=== PATIENT | female | born 1945 | race Caucasian/White ===

== ENCOUNTER 2017-02-06 14:22 | Inpatient (IN) | payer MEDICARE, MEDICAID ==
[2017-02-06] VITALS (8 sets, daily range): BP systolic 122–158; BP diastolic 63–85
[~2017-02-06] VITALS: Ht 162.6 cm; Wt 51.7 kg
--- NOTE | 2017-02-06 14:27 | NUR ---
MD MAE AT
--- NOTE | 2017-02-06 14:28 | NUR ---
OLIVER FROM [facility] FOR PSYHE EVALUATION. PATIENT IS AAO4. APPEARS IN NO APPARENT DISTRESS. RESPIRATION EVEN AND UNLABORED,. PER PATIENT SHE'S BEEN HEARING VOICES-- "THEY'RE TELLING ME IM BEING PUNISHED" . DENIES SUICIDAL. VSS
--- NOTE | 2017-02-06 14:30 | NUR ---
MUKESH TECH AT
--- NOTE | 2017-02-06 14:31 | NUR ---
EKG IN PROGRESS
[2017-02-06] MEDS ORDERED: MAGN400O6 PO (14:36)
[2017-02-06] MEDS ORDERED: CALC500T13 PO (14:36)
[2017-02-06] MEDS ORDERED: ACET-868 PO (14:36)
[2017-02-06] MEDS ORDERED: ZOLP5TAB2 PO (14:36)
[2017-02-06] MEDS ORDERED: LORA0.5T PO (14:36)
[2017-02-06] MEDS ORDERED: MIRT15TA7 PO (14:36)
[2017-02-06] MEDS ORDERED: DOCU-25 PO (14:36)
[2017-02-06] MEDS ORDERED: MAG30ORA PO (14:36)
[2017-02-06] MEDS ORDERED: TRAM50TA2 PO (14:36)
[2017-02-06] MEDS ORDERED: OLAN7.5T3 PO (14:36)
--- NOTE | 2017-02-06 14:36 | NUR ---
CALLED [facility] FOR PSYCH EVAL, ETA 1 HOUR
[2017-02-06 14:40] LABS: MEAN CORPUSCULAR HEMOGLOBIN 15 PG (26.0-33.0); MEAN CORPUSCULAR HGB CONC 29 g/dl (31.0-36.0); MEAN CORPUSCULAR VOLUME 53 fL (82-100); PLATELET COUNT (AUTO) 487 /CMM (150-450); RDW COEFFICIENT OF VARIATION 21.2 (11.5-15.0); RED BLOOD CELL COUNT(AUTO) 3.15 MIL/uL (4.0-5.2)
[2017-02-06 14:47] LABS: HEMOGLOBIN 4.8 g/dL (11.5-14.8)
[2017-02-06 14:48] LABS: HEMATOCRIT 17 % (33-45)
--- NOTE | 2017-02-06 15:05 | NUR ---
NURSE MIDWIFE/CLINICAL INSTRUCTOR AT BEDSIDE FOR REDRAW
[2017-02-06 15:16] LABS: ALCOHOL, BLOOD < 3 mg/dL (0-0); CARBON DIOXIDE 25 mmol/L (21-32); CHLORIDE 107 mmol/L (98-107); GLUCOSE 104 mg/dL (74-106); POTASSIUM 4.1 mmol/L (3.5-5.1); SODIUM SERUM 141 mmol/L (136-145); UREA NITROGEN, BLOOD 17 mg/dL (7-18)
[2017-02-06 15:23] LABS: CREATININE 1.1 mg/dL (0.6-1.3)
[2017-02-06 15:25] LABS: MEAN CORPUSCULAR HEMOGLOBIN 15 PG (26.0-33.0); MEAN CORPUSCULAR HGB CONC 29 g/dl (31.0-36.0); MEAN CORPUSCULAR VOLUME 53 fL (82-100); PLATELET COUNT (AUTO) 481 /CMM (150-450); RDW COEFFICIENT OF VARIATION 20.9 (11.5-15.0); RED BLOOD CELL COUNT(AUTO) 3.13 MIL/uL (4.0-5.2); WHITE BLOOD COUNT (AUTO) 6.4 K/uL (4.3-11.0)
[2017-02-06 15:25] LABS: TROPONIN I < 0.017 ng/mL (0.00-0.056)
[2017-02-06] MEDS ORDERED: PANTOPRAZOLE 40 MG VIAL ONE (15:25)
[2017-02-06 15:29] LABS: HEMOGLOBIN 4.7 g/dL (11.5-14.8)
[2017-02-06 15:30] LABS: HEMATOCRIT 16 % (33-45)
[2017-02-06] MEDS ORDERED: PANTOPRAZOLE 40 MG VIAL IV ONE (15:30)
--- NOTE | 2017-02-06 15:32 | NUR ---
IV ACCESSED TO LAC 20
--- NOTE | 2017-02-06 15:34 | NUR ---
CALLED [facility] AND NOTIFIED HER PATIENT IS NOT MEDICALLY CLEARED
[2017-02-06 15:54] LABS: THYROID STIMULATING HORMONE 2.148 uIU/mL (0.358-3.74)
[2017-02-06] MEDS ORDERED: ACETAMINOPHEN 325 MG TABLET PO PRN (16:00)
[2017-02-06] MEDS ORDERED: ONDANSETRON HCL/PF 4 MG/2 ML VIAL IVP PRN (16:00)
[2017-02-06 16:38] LABS: APPEARANCE,URINE CLEAR (CLEAR); BILIRUBIN,URINE NEGATIVE (NEGATIVE); BLOOD, URINE NEGATIVE Ery/uL (NEGATIVE); COLOR,URINE YELLOW (YELLOW); KETONES,URINE NEGATIVE (NEGATIVE); LEUKOCYTE ESTERASE ,URINE NEGATIVE (NEGATIVE); NITRITE, URINE NEGATIVE (NEGATIVE); PROTEIN,URINE NEGATIVE (NEGATIVE); UGLUCOSE NEGATIVE (NEGATIVE); UROBILINOGEN,URINE 0.2 EU/dL (0.2)
--- NOTE | 2017-02-06 16:48 | NUR ---
PATIENT ASSIGNED TO [facility] 119-1
--- NOTE | 2017-02-06 16:55 | NUR ---
REPORT GIVEN TO OSKAR PEREZ FOR CONTINUITY OF CARE
[2017-02-06] MEDS ORDERED: PANTOPRAZOLE 40 MG VIAL IV SCH (17:00)
--- NOTE | 2017-02-06 17:12 | NUR ---
BLOOD NOT READY FOR TRANSFUSION YET. ENDORSED TO OSKAR PEREZ 2 PRBC
--- NOTE | 2017-02-06 17:19 | NUR ---
Admitted patient from ER via gurney;no unusual signs or symptoms observed or reported,no signs of discomfort or distress.Patient is to be transfused with Pack RBC.Took VS all are in the normal range.
--- NOTE | 2017-02-06 17:24 | NUR ---
PT TRANSPORTED TO [facility] VIA ACLS PROTOCOL
[2017-02-06 19:57] LABS: BAND % (MANUAL) 1 % (0.0-5.0); EOSINOPHILS % (MANUAL) 2 % (0-4); LYMPHOCYTES % (MANUAL) 11 % (16-48); MONOCYTES % (MANUAL) 5 % (0-11.0); NEUTROPHILS % (MANUAL) 81 (42-76)
--- NOTE | 2017-02-06 20:21 | NUR ---
Picked up and started blood transfusions #1,no problems
[2017-02-06] MEDS: LORAZEPAM INJ 2 MG/ML VIAL IV PRN (20:44)
--- NOTE | 2017-02-06 23:50 | NUR ---
Picked up Pack RBC #2 and transfused,no problems,tolerated well.
[2017-02-07] VITALS (12 sets, daily range): BP systolic 128–154; BP diastolic 64–95
--- NOTE | 2017-02-07 03:20 | NUR ---
Picked up and started transfusing of Pack RBC #3,no problems,tolerating well.
--- NOTE | 2017-02-07 05:40 | NUR ---
Transfusion completed,no problems no unusual signs or symptoms observed or reported.
[2017-02-07] MEDS: IV NS 0.9% 1,000 ML IV PRN ×2 (06:07→20:51)
[2017-02-07] MEDS: LORAZEPAM INJ 2 MG/ML VIAL IV PRN ×2 (06:51→14:33)
[2017-02-07 07:46] LABS: HEMATOCRIT 34 % (33-45); HEMOGLOBIN 10.6 g/dL (11.5-14.8); MEAN CORPUSCULAR HEMOGLOBIN 21 PG (26.0-33.0); MEAN CORPUSCULAR HGB CONC 31 g/dl (31.0-36.0); MEAN CORPUSCULAR VOLUME 67 fL (82-100); PLATELET COUNT (AUTO) 400 /CMM (150-450); RDW COEFFICIENT OF VARIATION 35.6 (11.5-15.0); RED BLOOD CELL COUNT(AUTO) 5.03 MIL/uL (4.0-5.2); WHITE BLOOD COUNT (AUTO) 7.5 K/uL (4.3-11.0)
[2017-02-07 07:51] LABS: CALCIUM, SERUM 8.8 mg/dL (8.5-10.1); CREATININE 0.9 mg/dL (0.6-1.3); MAGNESIUM 2.1 mg/dL (1.8-2.4); PHOSPHORUS 3.1 mg/dL (2.5-4.9)
--- NOTE | 2017-02-07 08:00 | NUR ---
UNDERWATER TRAPPER NOTE PATIENT IN BED BUT VERY ANXIOUS , ALL NEEDS ATTENDED ,ON TELE MONITOR SR 95 , BED IN LOWEST AND LOCKED POSITION , CALL LIGHT WITHIN REACH , PLAN OF CARE DISCUSSED WITH PATIENT , ON NPO SEPTUS AT THIS TIME , LT FOREARM HL INTACT AND PATENT , ON IVF ORDERED, ASSISTED TO BR . NO BM AT THIS TIME , WILL CONT TO MONITOR CLOSELY
[2017-02-07] MEDS: PANTOPRAZOLE 40 MG VIAL IV SCH ×2 (08:30→16:41)
[2017-02-07 08:43] LABS: EOSINOPHILS % (MANUAL) 2 % (0-4); LYMPHOCYTES % (MANUAL) 17 % (16-48); MONOCYTES % (MANUAL) 6 % (0-11.0); NEUTROPHILS % (MANUAL) 75 (42-76)
--- NOTE | 2017-02-07 09:40 | NUR ---
PAPER MAKER NOTE SPOKE WITH CARLOTTA SCHMITT SCRUM PRODUCT OWNER NOTIFIED THAT PATIENT IS NPO AT THIS TIME , AND FOLLOW UP WITH MED RECON , ALSO NOTIFIED THAT HG NOW 10.6 HCT 34 ALSO ALSO STILL WANTS KEEP FULL CODE AT THIS TIME WILL HELD PSYCH EVAL TILL DR RADHA KAMINSKI DOCTOR SEE PATIENT , CONT ON IVF ORDERED WILL CONT TO MONITOR CLOSELY Addendum: 02/07/17 at 1400 by MANUEL PATEL RN [id number] SPOKE WITH INA TO CHECK MED RECON ,STATED THAT WILL CHECK IT OUT
--- NOTE | 2017-02-07 13:15 | NUR ---
EXECUTIVE RECEPTIONIST NOTE SPOKE WITH DR AXEL KAMINSKI ,STATED THAT WE NEED TO GET CONSENT FOR PROCEDURE AND OK TO START CLEAR LIQUID DIET FOR NOW ,AWARE THAT UNABLE TO REACH PATIENT SISTER FINESSE ,CALLED MANY TIMES , LEFT A MESSAGE ,ALSO AWARE THAT HG 10.6 AWARE THAT NO ORDER TO PREP FOR COLONOSCOPY
--- NOTE | 2017-02-07 13:20 | NUR ---
ALEXANDER SCHMITT NOTE PER INA SCHMITT CLIP WRAPPER OK TO HAVE PSYCH EVAL
[2017-02-07] MEDS: SOD FERRIC GLUC 125 MG in IV NS 0.9% 100 ML IV SCH (13:52)
--- NOTE | 2017-02-07 14:41 | NUR ---
AGRICULTURE SCIENCE TEACHER NOTE NOTED PATIENT IS AGITATED TRYING TO REMOVE ALL LINES AND DIAPER, ALL NEEDS ATTENDED, STAYED WITH PATIENT, REASSURANCE GIVEN , ATIVAN 0.5 MG IV GIVEN ORDERED, WILL F\U Addendum: 02/07/17 at 1525 by MANUEL PATEL RN BUSINESS SUPPORTCORE SHAPER RN PLACED DOCUMENTATION OF BLOOD TRANSFUSION ON PAPER NOT IN COMPUTER , SEE HIS DOCUMENTATION IN CHART
--- NOTE | 2017-02-07 16:56 | NUR ---
FILM COMPOSER NOTE SPOKE WITH WITH SISTER FINESSE, TELEPHONE CONSENT FOR EGD AND COLONOSCOPY OBTAINED DR REYNA NOTIFIED
--- NOTE | 2017-02-07 17:59 | NUR ---
ALEXANDER PATRICIA PER DR JEREZ TO START CLEAR LIQUID DIET FOR NOR AMD NPO ON MONDAT AFTER MN ON 02/09/17 JOVANA LORD MPNDAY AT 10 Addendum: 02/07/17 at 1801 by MANUEL PATEL RN WRONG ENTRY
--- NOTE | 2017-02-07 18:01 | NUR ---
ORDER FILLER NOTE PER DR AXEL MAHONEY TO START ON CLEAR LIQUID DIET AND START BE ON WEDNESDAY NPO AFTER MID NIGHT ON 02/09/17 ALSO GIVE GOLYTELY AT 1300 ON Wednesday02/08/17 GIVE ORDER TO GET CONSENT FOE EGD AND COLONOSCOPY ,SPOKE WITH FINESSE SISTER TELEPHONE CONSENT OBTAINED Addendum: 02/07/17 at 1816 by MANUEL PATEL RN ESTELITA HL ON RT FA ABDULLAHI 22 INSERTED WITH GOOD BLOOD RETURN
--- NOTE | 2017-02-07 19:30 | NUR ---
Received patient in the bed.No unusual signs or symptoms observed or reported,no signs of discomfort or distress.Telemetry attached,recording SR at 97 bpm.VS taken all are in the normal range except for the BP 152/95.Normal Saline attached and infusing via a heplock on the right arm at 75 bpm,tolerating well.Scheduled for a procedure.Preparation to begin shortly.No problems.
--- NOTE | 2017-02-07 23:00 | NUR ---
Resting quietly,no problems
[2017-02-08] VITALS (9 sets, daily range): BP systolic 94–157; BP diastolic 52–94
[2017-02-08 07:13] LABS: HEMATOCRIT 31 % (33-45); HEMOGLOBIN 9.9 g/dL (11.5-14.8); MEAN CORPUSCULAR HEMOGLOBIN 22 PG (26.0-33.0); MEAN CORPUSCULAR HGB CONC 32 g/dl (31.0-36.0); MEAN CORPUSCULAR VOLUME 67 fL (82-100); PLATELET COUNT (AUTO) 256 /CMM (150-450); RDW COEFFICIENT OF VARIATION 36.1 (11.5-15.0)
--- NOTE | 2017-02-08 07:30 | NUR ---
RN NOTES RECEIVED PATIENT IN BED ALERT, AWAKE, ORIENTED X3 WITH BREATHING NORMAL, EVEN AND UNLABORED. NO SOB NOTED. NO ACUTE DISTRESS NOTED TELE MONITOR REVEALS SR, HR=88. BOWEL SOUNDS PRESENT. PULSES PRESENT. SAFETY MEASURE OBSERVED. CALL LIGHT WITH IN REACH. WILL CONT TO [id number].
[2017-02-08 07:34] LABS: CALCIUM, SERUM 8.1 mg/dL (8.5-10.1); CREATININE 0.8 mg/dL (0.6-1.3); POTASSIUM 3.8 mmol/L (3.5-5.1)
[2017-02-08] MEDS: PANTOPRAZOLE 40 MG VIAL IV SCH ×2 (09:07→17:52)
[2017-02-08] MEDS: LORAZEPAM INJ 2 MG/ML VIAL IV PRN (09:08)
[2017-02-08] MEDS: IV NS 0.9% 1,000 ML IV PRN (09:15)
[2017-02-08 11:10] LABS: EOSINOPHILS % (MANUAL) 4 % (0-4); LYMPHOCYTES % (MANUAL) 13 % (16-48); MONOCYTES % (MANUAL) 3 % (0-11.0); NEUTROPHILS % (MANUAL) 80 (42-76)
[2017-02-08] MEDS ORDERED: PEG 3350/NA SULF,BICARB,CL/KCL 4,000 ML BOTTLE PO ONE (13:00)
[2017-02-08] MEDS: SOD FERRIC GLUC 125 MG in IV NS 0.9% 100 ML IV SCH (14:53)
[2017-02-08] MEDS: OLANZAPINE 2.5 MG TABLET PO SCH (17:52)
--- NOTE | 2017-02-08 18:58 | NUR ---
RN NOTES PATIENT ENDORSED TO NEXT SHIFT IN STABLE CONDITION WITH BREATHING NORMAL, EVEN AND UNLABORED. NO SOB NOTED. NO ACUTE DISTRESS NOTED. KEPT CLEAN, DRY AND COMFORTABLE. ALL NEEDS ATTENDED. SAFETY MEASURE OBSERVED. CALL LIGHT WITH IN REACH. WILL CONT TO MONITOR.
[2017-02-08] MEDS ORDERED: MAGNESIUM CITRATE 296 ML BOTTLE PO PRN (19:00)
[2017-02-08] MEDS: OLANZAPINE 10 MG TABLET PO SCH (22:06)
[2017-02-08] MEDS: MIRTAZAPINE 15 MG TABLET PO SCH (22:06)
[2017-02-09] VITALS: BP 148/79
[2017-02-09] MEDS: IV NS 0.9% 1,000 ML IV PRN ×2 (02:47→19:58)
[2017-02-09 04:00] VITALS: BP 144/77
[2017-02-09 05:57] LABS: HEMATOCRIT 34 % (33-45); HEMOGLOBIN 10.6 g/dL (11.5-14.8); MEAN CORPUSCULAR HEMOGLOBIN 21 PG (26.0-33.0); MEAN CORPUSCULAR HGB CONC 31 g/dl (31.0-36.0); MEAN CORPUSCULAR VOLUME 68 fL (82-100); PLATELET COUNT (AUTO) 377 /CMM (150-450); RDW COEFFICIENT OF VARIATION 36.4 (11.5-15.0); RED BLOOD CELL COUNT(AUTO) 5.04 MIL/uL (4.0-5.2); WHITE BLOOD COUNT (AUTO) 9.8 K/uL (4.3-11.0)
[2017-02-09 06:06] LABS: CALCIUM, SERUM 8.4 mg/dL (8.5-10.1); CREATININE 0.8 mg/dL (0.6-1.3); POTASSIUM 3.9 mmol/L (3.5-5.1)
[2017-02-09 06:35] LABS: BAND % (MANUAL) 2 % (0.0-5.0); EOSINOPHILS % (MANUAL) 1 % (0-4); LYMPHOCYTES % (MANUAL) 12 % (16-48); MONOCYTES % (MANUAL) 3 % (0-11.0); NEUTROPHILS % (MANUAL) 82 (42-76)
--- NOTE | 2017-02-09 07:15 | NUR ---
RN NOTES RECEIVED PATIENT IN BED ALERT, AWAKE, ANXIOUS AT TIMES , ORIENTED X3, RESPIRATION EVEN AND UNLABORED, NO DISTRESS NOTED, ON TELE SR, PT NPO THIS AM COLOSCOPY , PULSES PRESENT. SAFETY MEASURE OBSERVED. BED LOCKED AND IN LOWEST POSITION , CALL LIGHT WITHIN EASY REACH. WILL CONT TO [id number].
[2017-02-09 08:00] VITALS: BP 157/82
[2017-02-09] MEDS: PANTOPRAZOLE 40 MG VIAL IV SCH (09:50)
[2017-02-09] MEDS: OLANZAPINE 2.5 MG TABLET PO SCH (09:50)
[2017-02-09] MEDS: LORAZEPAM INJ 2 MG/ML VIAL IV PRN ×2 (09:54→15:34)
[2017-02-09 12:00] VITALS: BP 139/73
--- NOTE | 2017-02-09 12:00 | NUR ---
RN NOTES BM X1, PT STABLE , NO DISTRESS NOTED.
[2017-02-09] MEDS: SOD FERRIC GLUC 125 MG in IV NS 0.9% 100 ML IV SCH (14:16)
[2017-02-09 16:00] VITALS: BP 139/73
--- NOTE | 2017-02-09 18:46 | NUR ---
RN NOTES PT REMANS THE SAME , DONYA ANY DISTRESS , NS AT 75CC/HR RUNNING VIA L FA IV SITE , TOLERATING REGULAR DIET WELL, SR UP x3, CALL LIGHT WITHIN EASY REACH, WILL ENDORSE TO ROADING ENGINEER NURSE FOR SRIKANTH .
--- NOTE | 2017-02-09 19:30 | NUR ---
RN INITIAL NOTES RECEIVED PATIENT IN BED, AWAKE, ALERT AND ORIENTED X3, ANXIOUS AT THIS TIME. ENCOURAGED PATIENT TO PERFORM DEEP BREATHING EXERCISES AND RELAXATION TECHNIQUES. LEFT WRIST IV PATENT AND INTACT, FLUSHED WITH NS, FREE FROM ANY S/S OF INFILTRATION OR PHLEBITIS. PLAN OF CARE DISCUSSED WITH THE PATIENT WHO VERBALIZES UNDERSTANDING. CALL LIGHT LEFT WITHIN EASY REACH, BED IN LOWEST AND LOCKED POSITION. WILL CONTINUE TO CLOSELY MONITOR
[2017-02-09 20:00] VITALS: BP 137/76
[2017-02-09] MEDS: MIRTAZAPINE 15 MG TABLET PO SCH (21:03)
[2017-02-09] MEDS: OLANZAPINE 10 MG TABLET PO SCH (21:04)
[2017-02-10 04:00] VITALS: BP 173/91
[2017-02-10] MEDS: LORAZEPAM INJ 2 MG/ML VIAL IV PRN (04:40)
--- NOTE | 2017-02-10 04:45 | NUR ---
RN NOTES PATIENT ANXIOUS AT THIS TIME, RESPIRATORY RATE INCREASED @ 26 COMPARED TO BASELINE, BP ELEVATED, ATIVAN ADMINISTERED FOR ANXIETY, WILL MONITOR CLOSELY
[2017-02-10 05:30] VITALS: BP 144/69
[2017-02-10 06:43] LABS: HEMATOCRIT 30 % (33-45); HEMOGLOBIN 9.3 g/dL (11.5-14.8); MEAN CORPUSCULAR HEMOGLOBIN 21 PG (26.0-33.0); MEAN CORPUSCULAR HGB CONC 31 g/dl (31.0-36.0); MEAN CORPUSCULAR VOLUME 68 fL (82-100); PLATELET COUNT (AUTO) 236 /CMM (150-450); RDW COEFFICIENT OF VARIATION 36.8 (11.5-15.0); RED BLOOD CELL COUNT(AUTO) 4.43 MIL/uL (4.0-5.2); RETICULOCYTE COUNT 2.3 % (0.6-2.5); WHITE BLOOD COUNT (AUTO) 7.3 K/uL (4.3-11.0)
[2017-02-10 06:51] LABS: ALBUMIN 2.9 g/dL (3.4-5.0); BILIRUBIN,DIRECT 0.1 mg/dL (0.0-0.2); BILIRUBIN,TOTAL 0.6 mg/dL (0.2-1.0); CALCIUM, SERUM 7.9 mg/dL (8.5-10.1); CREATININE 0.7 mg/dL (0.6-1.3); POTASSIUM 3.7 mmol/L (3.5-5.1); TOTAL PROTEIN, SERUM 6.1 g/dL (6.4-8.2)
--- NOTE | 2017-02-10 07:00 | NUR ---
RN CLOSING NOTES PATIENT RESTING COMFORTABLY IN BED, PATIENT ENDORSED TO THE AM SHIFT NURSE FOR SRIKANTH
[2017-02-10] MEDS ORDERED: PANTOPRAZOLE 40 MG TABLET.DR PO SCH (07:30)
--- NOTE | 2017-02-10 07:30 | NUR ---
MS SCHMITT OPENING RECEIVED PATIENT SLEEPING AWAKE TO TOUCH A/OX4 DENIES SOB, DIFFICULTY BREATHING OR PAIN AT THIS TIME. PATIENT PLEASANT AT THIS TIME AND STATES SHE WANTS TO REST. ALL NEEDS IN REACH, BED LOWERED AND LOCKED, RIALS UPX3 FOR SAFTEY AND WILL ROUND Q2H OR LESS PER NEEDS. Addendum: 02/10/17 at 0748 by SOLITARIO JACOBO RN NO S/S ACTIVE BLEEDING AT THIS TIME
[2017-02-10 08:00] VITALS: BP 134/86
[2017-02-10] MEDS: OLANZAPINE 2.5 MG TABLET PO SCH (08:18)
[2017-02-10 09:09] LABS: EOSINOPHILS % (MANUAL) 5 % (0-4); LYMPHOCYTES % (MANUAL) 8 % (16-48); MONOCYTES % (MANUAL) 7 % (0-11.0); NEUTROPHILS % (MANUAL) 80 (42-76)
--- NOTE | 2017-02-10 11:14 | NUR ---
MS RN NOTES STUDY HALL SUPERVISOR INA EDWARDS AT BEDSIDE FOR PATIENT. PATIENT PARTICIPATED IN PT EVAL AND AMBULATED 50 FEET.
--- NOTE | 2017-02-10 13:00 | NUR ---
MS RN NOTES GEMINI CRISIS EVAL AT BEDSIDE SPEAKING WITH PATIENT
--- NOTE | 2017-02-10 13:14 | NUR ---
MS RN NOTES PER INA EDWARDS DC IRON IV AND ORDER BID PO FERROUS SULFATE 325 MG
--- NOTE | 2017-02-10 13:57 | NUR ---
MS RN NOTES CALLED GPS AND SPOKE WITH RADHA RN AND GAVE REPORT ON PATIENT
--- NOTE | 2017-02-10 15:10 | NUR ---
MS EMBEDDED FIRMWARE DEVELOPER PATIENT STABLE NO COMPLICATIONS NOTED. ALL DUE MEDS GIVEN AND ALL NEEDS MET. PATIENT IV REMOVED PRESSURE AND DRESSING APPLIED NO BLEEDING NOTED. PATIENT EDUCATED ON DC MATERIAL AND STATED UNDERSTANDING. SIGNED DC MATERIAL WELL ANOTHER RN. ALL BELONGINGS ACCOUNTED FOR AND WITH PATIENT. CARE TRANSFERED TO RN IN GPS WITH PATIENT IN STABLE CONDITION
[2017-02-10] MEDS ORDERED: MAGN296S PO (17:00)
[2017-02-10] MEDS ORDERED: PANT40TA4 PO (17:00)
[2017-02-10] MEDS ORDERED: OLAN2.5T3 PO (17:00)
[2017-02-10] MEDS ORDERED: OLAN7.5T3 PO (17:00)
[2017-02-10] MEDS ORDERED: FERROUS SULFATE (325 MG) 325 MG/TAB TABLET PO SCH (17:00)
[2017-02-10] MEDS ORDERED: FERR-58 PO (17:00)
== END 2017-02-10 15:52 | DRG 379 ==
LOC: ER 14:23 → TELE-TD 16:59 → TELE1 02-07 07:03 → MEDSG1 02-09 11:41
PROVIDERS: ADMIT Nurse Practitioner Acute Care; ATTEND Nurse Practitioner Acute Care
PROC: 30233N1 Transfusion of Nonautologous Red Blood Cells into Peripheral Vein, Percutaneous Approach (ICD-10-PCS; 2017-02-06)
PROC: 0DJD8ZZ Inspection of Lower Intestinal Tract, Via Natural or Artificial Opening Endoscopic (ICD-10-PCS; 2017-02-09)
PROC: 05H533Z Insertion of Infusion Device into Right Subclavian Vein, Percutaneous Approach (ICD-10-PCS; 2017-02-09)
PROC: 0DB58ZX Excision of Esophagus, Via Natural or Artificial Opening Endoscopic, Diagnostic (ICD-10-PCS; principal; 2017-02-09 08:00)
PROC: 0DB68ZX Excision of Stomach, Via Natural or Artificial Opening Endoscopic, Diagnostic (ICD-10-PCS; 2017-02-09 08:00)
DX: K29.71 Gastritis, unspecified, with bleeding (principal); D75.89 Other specified diseases of blood and blood-forming organs; F25.9 Schizoaffective disorder, unspecified; D50.0 Iron deficiency anemia secondary to blood loss (chronic); K44.9 Diaphragmatic hernia without obstruction or gangrene; K57.90 Diverticulosis of intestine, part unspecified, without perforation or abscess without bleeding; K64.8 Other hemorrhoids; Z88.0 Allergy status to penicillin; F32.9 Major depressive disorder, single episode, unspecified
CPT/HCPCS: 36415; 36569; 71010-TC; 80048-TC; 80061-TC; 80076-TC; 80305; 81000-TC; 82728-TC; 82746; 83540-TC; 83735-TC; 84100-TC; 84439-TC; 84443-TC; 84484-TC; 85025-TC; 85045-TC; 86850-TC; 86921-TC; 87081-TC; 88305-TC; 88313-TC; 88342; A4606; A6402; C9113; G0480; J2060; J2370; J2704; J2916; J3490; J7030; J7050; P9016-BL; Z7610

== ENCOUNTER 2017-02-10 16:17 | Inpatient (IN) | payer MEDICARE, MEDICAID ==
[~2017-02-10] VITALS: Ht 152.4 cm; Wt 52.2 kg
[~2017-02-10 16:17] MED LIST: ACET-868 PO; CALC500T13 PO; DOCU-25 PO; LORA0.5T PO; MAG30ORA PO; MAGN400O6 PO; MIRT15TA7 PO; OLAN7.5T3 PO; TRAM50TA2 PO; ZOLP5TAB2 PO
[2017-02-10 16:56] VITALS: BP 125/84
[2017-02-10] MEDS ORDERED: MAGN296S PO (17:00)
[2017-02-10] MEDS ORDERED: PANT40TA4 PO (17:00)
[2017-02-10] MEDS ORDERED: OLAN2.5T3 PO (17:00)
[2017-02-10] MEDS ORDERED: TEMAZEPAM 7.5 MG CAPSULE PO PRN (17:00)
[2017-02-10] MEDS ORDERED: FERR-58 PO (17:00)
[2017-02-10] MEDS ORDERED: MAG HYDROX/AL HYDROX/SIMETH 30 ML UDC PO PRN (17:00)
[2017-02-10] MEDS ORDERED: OLAN7.5T3 PO (17:00)
--- NOTE | 2017-02-10 19:30 | NUR ---
GPS RN NOTE, RECEIVED PATIENT AWAKE AND IN BED, PATIENT HAS A COMPLAINT OF RIGHT THIGH PAIN AT 3 OUT 10 ON THE PAIN SCALE. PATIENT IS TAKING ORAL PAIN MEDICATION FOR THIS PAIN. PATIENT IS DISPLAYING NO S/S OF APPARENT DISTRESS AT THIS TIME. PATIENT BREATHING IS UNLABORED WITH EQUAL RISE AND FALL OF THE CHEST. PATIENT IS ALERT AND ORIENTED X 2 ON ROOM AIR WITH A SPO2 OF 98%. PATIENT IS NON AMBULATORY, MED COMPLIANT, CONFUSED AT TIMES, DISORGANIZED, AND NEEDS REORIENTATION. PATIENT DENIES SUICIDE IDEATIONS AND HOMICIDAL IDEATIONS AT THIS TIME. PATIENT EDUCATED ON THE USE OF THE CALL MULLEN. PATIENT BED SIDE RAILS UP X2 FOR SAFETY, BED IS LOCKED AND LOW, AND I WILL CONTINUE TO MONITOR AND MAINTAIN SAFETY Q15MIN WITH THE HELP OF STAFF.
--- NOTE | 2017-02-10 19:46 | NUR ---
CULTURE MANAGER-NOTES ADMITTED 71 Y.O FEMALE PATIENT ON 5150 FOR DANGER TO SELF. UPON FACE TO FACE ASSESSMENT PATIENT IS ALERT ORIENTED X4 ,VERBALIZED DEPRESSION BUT DENIES SI/HI AT THIS TIME. PATIENT IS CALM AND COOPERATIVE DURING ADMISSION PROCESS.PATIENT IS AMBULATORY WITH ASSIST. DR. RICCI (PSYCHIATRIST) MADE AWARE WITH ORDERS. ALSO DR. HUTCHINSON ( BLOCK CABLEMAN) WAS MADE AWARE AND WILL RECONCILE PATIENT MEDICATIONS. PATIENT WAS ORIENTED IN THE UNIT AND UNIT POLICIES. SISTER ELIGIO TORRES WAS MADE AWARE OF THE ADMISSION. CONTRA BAND DONE AND BODY CHECK DONE. ENDORSED TO LINE ORDERING CLINICIAN NURSE FOR CONTINUITY OF CARE.
[2017-02-10 20:17] VITALS: BP 122/68
[2017-02-10] MEDS: OLANZAPINE 10 MG TABLET PO SCH (22:19)
[2017-02-10] MEDS: MIRTAZAPINE 15 MG TABLET PO SCH (22:19)
[2017-02-10] MEDS: ACETAMINOPHEN 325 MG TABLET PO PRN (22:30)
--- NOTE | 2017-02-10 22:30 | NUR ---
GPS RN NOTE, PATIENT HAS A COMPLAINT OF RIGHT THIGH PAIN AT 3 OUT 10 ON THE PAIN SCALE AND IS REQUESTING TYLENOL AT THIS TIME. PATIENT VITAL SIGNS ARE STABLE. GAVE TYLENOL 650 MG PO Q6HR PRN ORDERED. WILL REASSESS PAIN AND I WILL CONTINUE TO MONITOR THIS PATIENT.
[2017-02-11] MEDS: ACETAMINOPHEN 325 MG TABLET PO PRN (06:58)
[2017-02-11 07:25] LABS: ALBUMIN 3.1 g/dL (3.4-5.0); BILIRUBIN,TOTAL 0.6 mg/dL (0.2-1.0); CALCIUM, SERUM 8.3 mg/dL (8.5-10.1); CREATININE 0.8 mg/dL (0.6-1.3); POTASSIUM 3.9 mmol/L (3.5-5.1); TOTAL PROTEIN, SERUM 6.5 g/dL (6.4-8.2)
[2017-02-11 08:31] VITALS: BP 108/63
[2017-02-11] MEDS: OLANZAPINE 2.5 MG TABLET PO SCH (08:50)
[2017-02-11] MEDS: FERROUS SULFATE (325 MG) 325 MG/TAB TABLET PO SCH ×2 (08:50→17:04)
--- NOTE | 2017-02-11 11:57 | NUR ---
Initial Discharge Plan Patient is at [facility], [address] [place] [id number], . front desk worker spoke with Annika from [facility] [phone] who confirmed that patient was at their facility and will continue there, as she is their retirement patient. front desk worker spoke with her sister, Kellen [phone] who stated that she would also like for patient to continue at [facility]. front desk worker asked Annika from [facility] to fax over DPOA paperwork. SW will work to arrange safe discharge and placement.
--- NOTE | 2017-02-11 13:00 | NUR ---
GPS RN NOTE: PATIENT AWAKE AND IN BED, PATIENT HAS A COMPLAINT OF RIGHT HIP NORCO 5-325 PO PRN Q 6 HR GIVEN NO S/S OF APPARENT DISTRESS AT THIS TIME. PATIENT BREATHING IS UNLABORED WITH EQUAL RISE AND FALL OF THE CHEST. PATIENT IS NON AMBULATORY, MED COMPLIANT, CONFUSED AT TIMES, DISORGANIZED, AND NEEDS REORIENTATION. PATIENT DENIES SUICIDE IDEATIONS AND HOMICIDAL IDEATIONS AT THIS TIME. PATIENT EDUCATED ON THE USE OF THE CALL MULLEN. PATIENT BED SIDE RAILS UP X2 FOR SAFETY, BED IS LOCKED AND LOW, AND I WILL CONTINUE TO MONITOR AND MAINTAIN SAFETY Q15MIN WITH THE HELP OF STAFF.
--- NOTE | 2017-02-11 13:01 | NUR ---
GPS RN NOTE: DR GEORGE NOTIFIED ID WAS COMPLAINING OF RIGHT HIP PAIN NEW ORDER FOR NORCO 5-325 MG PO Q 6 HR, RIGHT HIP XR ORDER PLACED AND CARED OUT WILL CONTINUE MONITORING FOR SAFETY AND BEHAVIOR Q 15 MIN.
[2017-02-11] MEDS: HYDROCODONE/APAP 5/325MG 1 EACH TABLET PO PRN ×2 (13:29→20:00)
[2017-02-11 17:14] VITALS: BP 116/68
--- NOTE | 2017-02-11 19:31 | NUR ---
GPS RN NOTE, RECEIVED PATIENT AWAKE AND IN BED, PATIENT HAS A COMPLAINT OF RIGHT THIGH PAIN AT 6 OUT 10 ON THE PAIN SCALE. PATIENT IS TAKING ORAL PAIN MEDICATION FOR THIS PAIN. PATIENT IS DISPLAYING NO S/S OF APPARENT DISTRESS AT THIS TIME. PATIENT BREATHING IS UNLABORED WITH EQUAL RISE AND FALL OF THE CHEST. PATIENT IS ALERT AND ORIENTED X 2 ON ROOM AIR WITH A SPO2 OF 97%. PATIENT IS AMBULATORY WITH WALKER AND ASSISTANCE, MED COMPLIANT, CONFUSED AT TIMES, DISORGANIZED, AND NEEDS REORIENTATION. PATIENT DENIES SUICIDE IDEATIONS AND HOMICIDAL IDEATIONS AT THIS TIME. PATIENT EDUCATED ON THE USE OF THE CALL MULLEN. PATIENT BED SIDE RAILS UP X2 FOR SAFETY, BED IS LOCKED AND LOW, AND I WILL CONTINUE TO MONITOR AND MAINTAIN SAFETY Q15MIN WITH THE HELP OF STAFF.
[2017-02-11 20:00] VITALS: BP 120/62
--- NOTE | 2017-02-11 20:00 | NUR ---
GPS RN NOTE, PATIENT HAS A COMPLAINT OF RIGHT THIGH PAIN AT 6 OUT 10 ON THE PAIN SCALE AND IS REQUESTING NORCO AT THIS TIME. PATIENT VITAL SIGNS ARE STABLE. GAVE NORCO 5-325 MG 1 TAB PO Q6HR PRN ORDERED. WILL REASSESS PAIN AND I WILL CONTINUE TO MONITOR THIS PATIENT.
[2017-02-11] MEDS: OLANZAPINE 10 MG TABLET PO SCH (21:19)
[2017-02-11] MEDS: MIRTAZAPINE 15 MG TABLET PO SCH (21:19)
[2017-02-12 08:00] VITALS: BP 146/80
[2017-02-12] MEDS: OLANZAPINE 2.5 MG TABLET PO SCH (08:08)
[2017-02-12] MEDS: FERROUS SULFATE (325 MG) 325 MG/TAB TABLET PO SCH ×2 (08:08→16:26)
[2017-02-12] MEDS: HYDROCODONE/APAP 5/325MG 1 EACH TABLET PO PRN (08:09)
[2017-02-12 09:20] LABS: IMMUNOGLOBULIN A, SERUM 83 mg/dL (87-352); IMMUNOGLOBULIN G, SERUM 654 mg/dL (700-1600); IMMUNOGLOBULIN M, SERUM 120 mg/dL (26-217)
[2017-02-12] MEDS: LORAZEPAM 0.5 MG TABLET PO PRN (12:14)
[2017-02-12 16:00] VITALS: BP 147/81
[2017-02-12 20:00] VITALS: BP 113/67
[2017-02-12] MEDS: OLANZAPINE 10 MG TABLET PO SCH (21:49)
[2017-02-12] MEDS: MIRTAZAPINE 15 MG TABLET PO SCH (21:49)
[2017-02-13 08:00] VITALS: BP 149/94
[2017-02-13] MEDS: FERROUS SULFATE (325 MG) 325 MG/TAB TABLET PO SCH ×2 (08:25→17:10)
[2017-02-13] MEDS: OLANZAPINE 2.5 MG TABLET PO SCH (08:25)
[2017-02-13] MEDS: HYDROCODONE/APAP 5/325MG 1 EACH TABLET PO PRN (08:25)
--- NOTE | 2017-02-13 08:25 | NUR ---
given norco for rt. hip pain.
--- NOTE | 2017-02-13 12:55 | NUR ---
given ativan for nerves at this time.
[2017-02-13] MEDS ORDERED: POLYETHYLENE GLYCOL 3350 17 GM POWD.PACK PO PRN (13:00)
[2017-02-13] MEDS: LORAZEPAM 0.5 MG TABLET PO PRN (13:01)
[2017-02-13 16:00] VITALS: BP 125/69
--- NOTE | 2017-02-13 18:31 | NUR ---
dr. rivera and dr. romo in to see pt. given miralax,states she has had no bm in 4 days.
--- NOTE | 2017-02-13 19:28 | NUR ---
GPS/RN NOTE: AWAKE, ALERT, LYING IN BED, COMFORTABLE, NO APPARENT DISTRESS NOTED.
[2017-02-13 20:00] VITALS: BP 113/74
[2017-02-13] MEDS: OLANZAPINE 10 MG TABLET PO SCH (21:21)
[2017-02-13] MEDS: MIRTAZAPINE 15 MG TABLET PO SCH (21:21)
[2017-02-14] MEDS: HYDROCODONE/APAP 5/325MG 1 EACH TABLET PO PRN ×3 (06:03→20:11)
--- NOTE | 2017-02-14 06:03 | NUR ---
GPS/RN NOTE: PATIENT C/O ACHY RIGHT HIP PAIN, 7/10 ON PAIN SCALE, NORCO 5/325 MG TAB PO GIVEN.
[2017-02-14 08:05] VITALS: BP 120/70
[2017-02-14] MEDS: OLANZAPINE 2.5 MG TABLET PO SCH (08:34)
[2017-02-14] MEDS: FERROUS SULFATE (325 MG) 325 MG/TAB TABLET PO SCH ×2 (08:34→16:43)
--- NOTE | 2017-02-14 12:51 | NUR ---
GPS/RN NOTE: PATIENT C/O ACHY RIGHT HIP PAIN, 8/10 ON PAIN SCALE, NORCO 5/325 MG TAB PO GIVEN.
[2017-02-14 16:00] VITALS: BP 130/88
[2017-02-14 20:16] VITALS: BP 127/74
[2017-02-14] MEDS: MIRTAZAPINE 15 MG TABLET PO SCH (21:50)
[2017-02-14] MEDS: OLANZAPINE 10 MG TABLET PO SCH (21:51)
[2017-02-15] MEDS: HYDROCODONE/APAP 5/325MG 1 EACH TABLET PO PRN ×3 (05:06→19:37)
[2017-02-15 08:32] VITALS: BP 129/72
[2017-02-15] MEDS: FERROUS SULFATE (325 MG) 325 MG/TAB TABLET PO SCH ×2 (08:53→16:04)
[2017-02-15] MEDS: OLANZAPINE 2.5 MG TABLET PO SCH (08:53)
[2017-02-15 09:18] LABS: *SPE A/G RATIO 1.1 (0.7-1.7); *SPE ALBUMIN 3.1 g/dL (2.9-4.4); *SPE ALPHA-1-GLOBULIN 0.3 g/dL (0.0-0.4); *SPE ALPHA-2-GLOBULIN 0.8 g/dL (0.4-1.0); *SPE GLOBULIN, TOTAL 2.8 g/dL (2.2-3.9); *SPE M-SPIKE Not Observed g/dL (Not Observed); *SPE PROTEIN TOTAL 5.9 g/dL (6.0-8.5); *SPEGAMMA GLOBULIN 0.6 g/dL (0.4-1.8)
[2017-02-15] MEDS: MAGNESIUM HYDROXIDE 30 ML UDC PO PRN (10:55)
--- NOTE | 2017-02-15 10:59 | NUR ---
GPS RN NOTE: PATIENT IN THE ROOM RESTING IN BED COMPLIANT WITH MEDICATIONS AND TX PER PT HAD NO BM FOR 4 DAYS MILK OF MAGNESIA AND PRUNE LUCE GIVEN PATIENT WAS CLEAN AND REPOSITION X2 CAMILA IN LOWER POSITION NO S/S DISTRESS NOTED WILL CONTINUE MONITORING FOR SAFETY AND BEHAVIOR Q 15 MIN.
--- NOTE | 2017-02-15 12:41 | NUR ---
CASH faxed over progress notes for pt to Annika from [facility], [address] [place] [phone], . The fax number is: [phone].
--- NOTE | 2017-02-15 13:52 | NUR ---
GPS/RN NOTE: PATIENT C/O ACHY RIGHT HIP PAIN, 8/10 ON PAIN SCALE, NORCO 5/325 MG TAB PO GIVEN.
[2017-02-15 16:12] VITALS: BP 143/81
[2017-02-15 20:03] VITALS: BP 110/65
[2017-02-15] MEDS: MIRTAZAPINE 15 MG TABLET PO SCH (21:20)
[2017-02-15] MEDS: OLANZAPINE 10 MG TABLET PO SCH (21:20)
[2017-02-16] MEDS: HYDROCODONE/APAP 5/325MG 1 EACH TABLET PO PRN ×4 (02:24→20:10)
[2017-02-16 08:00] VITALS: BP 124/74
[2017-02-16] MEDS: OLANZAPINE 2.5 MG TABLET PO SCH (08:37)
[2017-02-16] MEDS: FERROUS SULFATE (325 MG) 325 MG/TAB TABLET PO SCH ×2 (08:38→16:57)
--- NOTE | 2017-02-16 11:30 | NUR ---
DR. CHANDLER IN TO SEE PT. WELL .
--- NOTE | 2017-02-16 14:30 | NUR ---
PT. VERBALIZED THAT GOD IS PUNISHING HER FOR PAST BAD BEHAVIOR,AND THAT,S WHY SHE HAS HIP PAIN.
[2017-02-16 15:45] VITALS: BP 106/70
--- NOTE | 2017-02-16 16:13 | NUR ---
MED. X [address] CHANDLER INFORMED AND ORDER GIVEN FOR LIDOCAINE PATCH.
[2017-02-16] MEDS: LIDOCAINE 5% (PATCH) 1 EA PATCH TP SCH (16:56)
--- NOTE | 2017-02-16 18:30 | NUR ---
SISTER POA IN TO VISIT-TOOK ALL PT,S BELONGINGS EXCEPT CELL PHONE AND SPOUTER-WHICH ARE IN SAFE.SISTER TO COME IN TOMORROW,OUT OF VISITING HRS TO LIP CUTTER PHONE AND SPOUTER.BELONGING SHEET INDICATES THE SAME.
[2017-02-16 20:10] VITALS: BP 122/70
[2017-02-16] MEDS: MIRTAZAPINE 15 MG TABLET PO SCH (21:28)
[2017-02-16] MEDS: OLANZAPINE 10 MG TABLET PO SCH (21:30)
[2017-02-17] MEDS: HYDROCODONE/APAP 5/325MG 1 EACH TABLET PO PRN ×2 (05:16→21:33)
[2017-02-17] MEDS: FERROUS SULFATE (325 MG) 325 MG/TAB TABLET PO SCH ×2 (08:06→17:00)
[2017-02-17] MEDS: OLANZAPINE 2.5 MG TABLET PO SCH (08:06)
[2017-02-17 08:48] VITALS: BP 150/77
[2017-02-17] MEDS: LIDOCAINE 5% (PATCH) 1 EA PATCH TP SCH (14:03)
[2017-02-17 16:18] VITALS: BP 115/72
--- NOTE | 2017-02-17 16:40 | NUR ---
CASH Rodriguez spoke with pt's sister, Kellen [phone] and informed her of the discharge plan for tomorrow at 1pm to [facility]. Sister was in agreement. CASH Gonzalez will follow up tomorrow to confirm.
[2017-02-17] MEDS: MAGNESIUM HYDROXIDE 30 ML UDC PO PRN (17:44)
[2017-02-17 19:38] VITALS: BP 101/64
[2017-02-17] MEDS: MIRTAZAPINE 15 MG TABLET PO SCH (21:33)
[2017-02-17] MEDS: OLANZAPINE 10 MG TABLET PO SCH (21:34)
[2017-02-18] MEDS: HYDROCODONE/APAP 5/325MG 1 EACH TABLET PO PRN ×3 (06:16→21:17)
[2017-02-18 08:00] VITALS: BP 128/67
[2017-02-18] MEDS: FERROUS SULFATE (325 MG) 325 MG/TAB TABLET PO SCH ×2 (08:37→16:44)
[2017-02-18] MEDS: OLANZAPINE 2.5 MG TABLET PO SCH (08:37)
--- NOTE | 2017-02-18 11:41 | NUR ---
SW spoke with pt's sister, Kellen [phone] who is aware patient will be discharged tomorrow instead. Sister is agreeable.
--- NOTE | 2017-02-18 14:12 | NUR ---
RELIGIOUS HEALER-NOTES PATIENT C/O 12/10 RIGHT HIP PAIN AND REQUESTING FOR NORCO. NORCO 5MG /325MG 1 TAB. P.O GIVEN PRN ORDER. WILL CONT. MONITORING FOR SAFETY.
[2017-02-18] MEDS: LIDOCAINE 5% (PATCH) 1 EA PATCH TP SCH (15:06)
[2017-02-18 16:00] VITALS: BP 152/78
[2017-02-18 19:57] VITALS: BP 125/59
[2017-02-18 20:00] VITALS: BP 125/59
[2017-02-18] MEDS: MIRTAZAPINE 15 MG TABLET PO SCH (21:17)
[2017-02-18] MEDS: OLANZAPINE 10 MG TABLET PO SCH (21:17)
[2017-02-19 08:00] VITALS: BP 157/76
[2017-02-19] MEDS: FERROUS SULFATE (325 MG) 325 MG/TAB TABLET PO SCH (08:37)
[2017-02-19] MEDS: OLANZAPINE 2.5 MG TABLET PO SCH (08:38)
[2017-02-19] MEDS: HYDROCODONE/APAP 5/325MG 1 EACH TABLET PO PRN (08:43)
--- NOTE | 2017-02-19 09:43 | NUR ---
DR. RICCI GAVE AN ORDER TO D/C HOLD AND D/C TO [facility]. PT. WITHOUT DISTRESS, DENIES SUICIDAL AND HOMICIDAL AND TO FOLLOW UP WITH PSYCH AND MEDICAL DOCTORS.
--- NOTE | 2017-02-19 10:02 | NUR ---
Discharge Note Patient will be discharged to [facility], [address] [place] [address], via ambulance at 1pm [trip number [id number]]. Patient is a long-term resident of [facility]. Annika from [facility] has been informed of the discharge. Patients sister and DPOA, Kellen [phone], has also been informed and is in agreement with the discharge plan. Patient will follow up with her psychiatrist, Dr. Diane, [address] [facility] [address] [place] [address], on Thursday 02/22 at 9am. Patient will also follow up with her wool hat sanding machine operator, Dr. Cali [address] [address] [phone] on Thursday 02/22 at noon. Patient is not a smoker and does not use drugs/alcohol.
--- NOTE | 2017-02-19 13:15 | NUR ---
GPS MILITARY EDUCATION COORDINATOR NOTES: PATIENT'S HOLD DISCONTINUED AND PATIENT DISCHARGED TO [facility] PER DR. RICCI'S ORDER. PATIENT'S CONDITION IS STABLE FOR DISCHARGE, VS STABLE. PATIENT DENIES ANY SI/HI/AVH AT THE TIME OF DISCHARGE. ALL PATIENT'S BELONGINGS SENT HOME WITH HER SISTER, DOCUMENTED IN THE PROPERTY MANAGEMENT FORM. PICTURES TAKEN AND DOCUMENTED IN THE CHART. REPORT GIVEN TO CHRIS BAUER AT THE FACILITY. PATIENT LEFT THE UNIT ON A GURNEY [facility]IA [facility].
== END 2017-02-19 13:15 | DRG 885 ==
LOC: GPS 16:17
PROVIDERS: ADMIT Psychiatry & Neurology Psychiatry; ATTEND Internal Medicine
DX: F25.9 Schizoaffective disorder, unspecified (principal); E88.09 Other disorders of plasma-protein metabolism, not elsewhere classified; K29.71 Gastritis, unspecified, with bleeding; D50.0 Iron deficiency anemia secondary to blood loss (chronic); F23 Brief psychotic disorder; F32.9 Major depressive disorder, single episode, unspecified; K44.9 Diaphragmatic hernia without obstruction or gangrene; K57.90 Diverticulosis of intestine, part unspecified, without perforation or abscess without bleeding; K64.8 Other hemorrhoids; L30.9 Dermatitis, unspecified; Z88.0 Allergy status to penicillin
CPT/HCPCS: 36415; 73501; 80053-TC; 80061-TC; 82784; 84155; 84165; 86334; 87081-TC; 97110-TC; 97116-TC; 97530-TC; A6253